=== PATIENT | male | born 1975 | race Caucasian/White ===

== ENCOUNTER 2021-12-14 12:53 | Outpatient (CLI) | payer OTHER ==
[2021-12-14 13:52] VITALS: BP 127/93
--- NOTE | 2021-12-14 13:52 | SLEEP CARE CONSULTATION ---
Information from patient questionnaire entered by Charo Mota MA. I have reviewed and concur with the information entered by Charo Mota MA. This document represents the service I personally performed and the decisions made by me, Abbie Harrell ARNP. History of Present Illness Service Date and Time: 12/14/2021 1253 Reason for Visit: New patient (ONSET 11/2016, NO PRIORS,) Chief Complaint: reports: Snoring, Observed pauses in breathing (not recently, d id in the past) Date of Onset: 7-8 YRS Usual bedtime: 930 -1100 PM Time it takes to fall asleep: LESS THAN 5 MINUTES Snores at night: Yes Observed to quit breathing while asleep: Yes Sleeps alone due to snoring: No Number of times waking at night: 2 Reasons for waking at night: reports: Gasping for air, Bathroom Toss, Turn, or Twitch while sleeping: Yes Recalls having dreams: Yes (sometimes) Usually gets out of bed at: [id number] Feels refreshed in the morning: Yes Morning headache: No Sleepy or fatigued during the day: Yes (in afternoons) Ever fallen asleep while driving: No Takes day naps: Yes (almost every day right now since not on assignment) Dreams during day naps: No Prior sleep studies: No Additional HPI information: I had the pleasure of seeing ZACHARY L[address] today regarding the possibility of him having a sleep disorder. His current complaints are snoring. He states his told him before that he was snoring loudly but it got better. He would also gasp in his sleep and was very restless according to his . She has told him in the last few months that the snoring is getting worse again. He is looking at nursing home from the [facility] and decided to get this checked out. He states that he normally feels rested after sleeping but will get tired in the afternoons and take a nap if he can. 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 Patient is and lives in [place]. Have you smoked in the past 12 months: No Alcohol use: Yes Alcohol amount and frequency: 1-2 X WEEKLY Caffeine use: Yes Caffeine amount and frequency: 2-3 X DAILY Family History Family history of sleep disordered breathing: Yes Family Hx Sleep Apnea: Father: Snoring Allergies and Home Medications Known drug allergies: No Drug allergies reviewed: Yes Home medication list reviewed: Yes (no daily medications or supplements) Review of Systems Weight loss over past 5 years: 15 POUNDS Cardiovascular: denies: high blood pressure Gastrointestinal: denies: heartburn Neurological: denies: headaches Psychiatric: denies: anxiety, depression, mood disorder Ear/Nose/Throat: reports: wisdom teeth removed. denies: tonsillectomy Endocrine: denies: thyroid disease Immunologic: denies: allergies to food or environment Physical Exam Vital signs obtained and entered by: Dylan MOTA CMA [facility] Blood Pressure: 127/93 (RIGHT, PULSE 69, RESP 16) Heart Rate: 71 O2 Saturation: 97 (PAPER MASK) Height: 5 ft 6 in Weight: 145 lb (W/O CLOTHES) Body Mass Index: 23.3 BMI Classification: Healthy weight Neck circumference: 14.5 (inches) Mouth and throat: narrow oropharynx Soft palate: long Hard palate: normal Uvula: normal Uvula visualization: 50% Mallampati Class II Tongue: enlarged in size with teeth poole on lateral edges Tonsils: 2+ Neck: normal w/o lymphadenopathy or thyromegaly Heart: regular rate and rhythm Lungs: clear bilaterally Impression and Plan 1. Suspected Obstructive Sleep Apnea-Hypopnea Syndrome, as suggested by a history of loud and irregular snoring, observed pauses in breathing, gasping or choking in sleep, and excessive daytime sleepiness. Narrow oropharynx and obesity are common predisposing factors for obstructive sleep apnea-hypopnea syndrome. I recommend proceeding to polysomnography to confirm the diagnosis and to assess severity. If the patient has significant sleep disordered breathing, a manual CPAP titration study will also be performed to find the optimal treatment pressure. I informed the patient of what the sleep studies involve and after some discussion, obtained agreement to proceed. The pathophysiology of obstructive sleep apnea-hypopnea syndrome was discussed with the patient and health risks of cardiovascular and cerebrovascular disease if not treated. Risks of drowsy driving discussed in detail and patient advised to avoid long distance driving and to well puller head at the first sign of drowsiness. Patient agreed to plan. * Schedule polysomnography +- manual CPAP titration study and return in 1-2 weeks after the study to discuss result and initiate therapy. * Avoid long distance driving or driving when feeling sleepy. * Avoid alcohol, sedative and muscle relaxant around bedtime. * Maintain a healthy weight. * Review instructions provided by trained office staff on how to prepare for the sleep study. * Return for follow-up after sleep study completed. Counseling Topics: Weight control Visit Type: In Office Time Spent with Patient (minutes): 30 Provider Statement: I spent 100% of the Face to Face Visit with the patient with greater than 50% spent counseling the patient and coordination of care.
== END 2021-12-14 12:54 | disposition home or self-care (01) ==
LOC: SC 12:53
PROVIDERS: ATTEND Nurse Practitioner Family
DX: R06.83 Snoring (principal); G47.10 Hypersomnia, unspecified; G47.8 Other sleep disorders
CPT/HCPCS: 99203; 99212

== ENCOUNTER 2022-01-16 20:17 | Outpatient (CLI) | payer OTHER | END 2022-01-16 20:18 | disposition home or self-care (01) | LOC: SC 20:17 | PROVIDERS: ATTEND Nurse Practitioner Family | DX: G47.33 Obstructive sleep apnea (adult) (pediatric) (principal) | CPT/HCPCS: 95810 ==